=== PATIENT | male | born 1950 | race Caucasian/White ===

== ENCOUNTER 2020-01-20 20:23 | Observation (INO) | payer MEDICARE, OTHER ==
[~2020-01-20] VITALS: Ht 167.6 cm; Wt 96.2 kg
[2020-01-20] MEDS ORDERED: ONDANSETRON HCL INJ 2MG/ML 2ML 2 MG/ML VIAL IV STA (20:32)
[2020-01-20] MEDS ORDERED: MORPHINE SULFATE INJ 4 MG/ML INJ 1ML IV STA (20:32)
[2020-01-20 20:53] LABS: BASOPHILS # (AUTO) 0.1 (0.0-0.1); BASOPHILS % 1.1 % (0.0-1.0); EOSINOPHILS # (AUTO) 0.2 (0.0-0.4); EOSINOPHILS % 1.7 % (0.0-6.0); HEMATOCRIT 40.3 % (38.2-49.6); HEMOGLOBIN 12.9 g/dL (14.0-18.0); LYMPHOCYTES # (AUTO) 2.1 (1.0-3.2); LYMPHOCYTES % 22.4 % (18.0-39.1); MEAN CORPUSCULAR HEMOGLOBIN 27.7 pg (28-32); MEAN CORPUSCULAR VOLUME 86.7 fL (81-99); MONOCYTES # (AUTO) 0.8 (0.2-0.8); MONOCYTES % 8.9 % (4.4-11.3); NEUTROPHILS # (AUTO) 6.1 (2.1-6.9); NEUTROPHILS % 65.6 % (38.7-80.0); PLATELET COUNT 303 x10e3/uL (140-360); RED BLOOD COUNT 4.65 x10e6/uL (4.3-5.7); RED CELL DISTRIBUTION WIDTH 13.3 % (11.7-14.4)
[2020-01-20] MEDS ORDERED: SODIUM CHLORIDE 0.9% 1000ML 0 ML ONE (20:57)
[2020-01-20 21:02] LABS: INR 2.82; PROTHROMBIN TIME 31.6 seconds (11.9-14.5)
[2020-01-20 21:03] LABS: BILIRUBIN,URINE NEGATIVE (NEGATIVE); CLARITY,URINE SL CLOUDY (CLEAR); COLOR,URINE STRAW (YELLOW); KETONES,URINE TRACE (NEGATIVE); LEUKOCYTE ESTERASE ,URINE NEGATIVE (NEGATIVE); NITRITE,URINE NEGATIVE (NEGATIVE); PROTEIN,URINE DIPSTICK NEGATIVE (NEGATIVE); URINE UROBILINOGEN 4 mg/dL (0.2 - 1)
[2020-01-20 21:03] LABS: PARTIAL THROMBOPLASTIN TIME 43.4 seconds (23.8-35.5)
[2020-01-20 21:11] LABS: ALANINE AMINOTRANSFERASE 21 IU/L (0-55); ALBUMIN/GLOBULIN RATIO 0.6 (0.8-2.0); ALKALINE PHOSPHATASE 100 IU/L (40-150); ANION GAP 12.3 mmol/L (8-16); BLOOD UREA NITROGEN 15 mg/dL (7-26); BUN/CREATININE RATIO 13 (6-25); CALCIUM 8.5 mg/dL (8.4-10.2); CARBON DIOXIDE 25 mmol/L (22-29); CHLORIDE 105 mmol/L (98-107); CREATININE, SERUM 1.17 mg/dL (0.72-1.25); EST GLOMERULAR FILTRATION RATE > 60 ML/MIN (60-); GLUCOSE 129 mg/dL (74-118); POTASSIUM 4.3 mmol/L (3.5-5.1); SODIUM 138 mmol/L (136-145)
[2020-01-20 21:15] LABS: AMORPHOUS SEDIMENT,URINE MODERATE (FEW); BACTERIA,URINE MODERATE /HPF
[2020-01-20 21:22] LABS: AMYLASE 64 U/L (25-125); LIPASE 56 U/L (8-78)
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
[2020-01-21] VITALS (7 sets, daily range): BP systolic 116–147; BP diastolic 64–74
--- NOTE | 2020-01-21 00:39 | Diagnostic Imaging Report ---
EXAM: CT Abdomen and Pelvis WITH contrast INDICATION: Right lower quadrant pain. COMPARISON: None. TECHNIQUE: Abdomen and pelvis were scanned utilizing a multidetector helical scanner from the lung base to the pubic symphysis after administration of IV contrast. Coronal and sagittal reformations were obtained. Routine protocol was performed. Scan was performed during portal venous phase. IV CONTRAST: 100 cc of Isovue-370 ORAL CONTRAST: None. COMPLICATIONS: None RADIATION DOSE: Total DLP: 670.3 mGy*cm Estimated effective dose: (DLP x 0.015 x size factor) mSv CTDIvol has been reviewed. It is below the limits set by the Radiation Protocol Committee (RPC). FINDINGS: LINES and TUBES: None. LOWER THORAX: Dependent patchy opacities, left greater than right. HEPATOBILIARY: Diffuse mild hepatic steatosis. No evidence of focal lesion. No biliary ductal dilation. GALLBLADDER: No radio-opaque stones or sludge. No wall thickening. SPLEEN: No splenomegaly. PANCREAS: No focal masses or ductal dilatation. ADRENALS: No adrenal nodules KIDNEYS/URETERS: No evidence of hydronephrosis, solid mass, or stone. Bilateral renal cysts. GI TRACT: Small hiatal hernia. No evidence of wall thickening or distension. Duodenal diverticulum, measuring up to 1.5 cm. Appendix is normal. PELVIC ORGANS/BLADDER: Unremarkable. LYMPH NODES: No lymphadenopathy. VESSELS: There is mild atherosclerotic disease in the aorta and major arterial branches. PERITONEUM / RETROPERITONEUM: No free air or fluid. BONES AND SOFT TISSUES: There is a right-sided rectus sheath hematoma, measuring up to 6.7 x 4.5 cm with associated internal punctate contrast focus (series 2, image 64). Bilateral fat-containing inguinal hernias. Moderate compression deformity at T11. No retropulsion. CONCLUSION: Right rectus sheath hematoma, measuring up to 6.7 cm. Punctate internal focus of contrast hyperdensity, which may represent a small focus of active extravasation or pseudoaneurysm. Patchy dependent opacities in the lungs, compatible with atypical infection. Moderate age indeterminate compression deformity at T11. No retropulsion. The above findings were discussed with Dr. Storm on 01/21/2020 at 12:30 AM, who responded indicating that the communication was understood. Signed by: Dr. Kevan Mcclellan MD on 01/21/2020 12:35 AM
[2020-01-21 04:01] LABS: HEMATOCRIT 36.9 % (38.2-49.6); HEMOGLOBIN 11.8 g/dL (14.0-18.0)
[2020-01-21] MEDS ORDERED: WARFARIN SODIUM4 MG PO (04:15)
[2020-01-21] MEDS ORDERED: SODIUM CHLORIDE FLUSH 10 ML SYR INJ PRN (04:15)
[2020-01-21] MEDS ORDERED: ESOMEPRAZOLE MA20 MG PO (04:15)
[2020-01-21] MEDS ORDERED: ATORVASTATIN CA40 MG PO (04:15)
--- NOTE | 2020-01-21 04:29 | NUR ---
pt placed on telemetry box #11 per orders.
--- NOTE | 2020-01-21 04:45 | NUR ---
Patient arrived from ED to 284 with admitting diagnosis of Rectus sheath hematoma. Pt alert and oriented x3. Ambulatory in room prn. Placed on covid room due to recent history of COVID. Pt stated most recent COVID test was negative and awaiting on second COVID test done at [facility]. Hgb dropped dropped from 12.9 to 11.8 and thus was admitted for observation. Call mcdaniels within reach. Will monitor pt closely.
[2020-01-21 06:08] LABS: HEMOGLOBIN 12.8 g/dL (14.0-18.0)
--- NOTE | 2020-01-21 06:49 | NUR ---
Dr. Nehemias Rogers called back and was notified of new consult for patient regarding Rectus sheath hematoma and abdominal pain. MD aware and stated he will see pt this morning.
[2020-01-21 07:51] LABS: INR 2.82; PROTHROMBIN TIME 31.6 seconds (11.9-14.5)
[2020-01-21] MEDS: PANTOPRAZOLE SOD 40 MG TABEC PO SCH (08:20)
[2020-01-21] MEDS ORDERED: WARFARIN SOD 2 MG TAB PO SCH ×2 (09:00→17:00)
[2020-01-21] MEDS ORDERED: SODIUM CHLORIDE 0.9% 50ML 50 ML ONE (09:27)
[2020-01-21] MEDS ORDERED: IOPAMIDOL 370 MG/ML 200 ML INFUS..BTL INJ ONE (09:27)
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
[2020-01-21 12:32] LABS: HEMATOCRIT 39.6 % (38.2-49.6); HEMOGLOBIN 12.6 g/dL (14.0-18.0)
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
[2020-01-21 18:21] LABS: HEMATOCRIT 40.2 % (38.2-49.6)
--- NOTE | 2020-01-21 18:41 | NUR ---
aware patient on coumadin. Per Dr.Rodriguez Luis. "hold coumadin"
--- NOTE | 2020-01-21 18:47 | NUR ---
Report given to oncoming nurse of patient's status. Resting in bed, side rails upx2, call light within reach. AAOX4 to time, person, place, situation. Respirations even and unlabored.
[2020-01-21] MEDS ORDERED: HYDROCODONE/APAP 7.5MG-325MG 1 EA TAB PO PRN (19:00)
--- NOTE | 2020-01-21 19:10 | NUR ---
Received the patient in report.lyeing in the bed.stable condition.
--- NOTE | 2020-01-21 20:40 | NUR ---
Assessment done.no resp.distress.right lower abd pain voiced 12/09.medicated with norco 7.5 mg po.iv to right ac #18 patent.bed locked .phone and call light within reach.stable condition.
--- NOTE | 2020-01-21 20:47 | NUR ---
Report given to Jaja Rosales.
[2020-01-21] MEDS ORDERED: ATORVASTATIN 40 MG TAB PO SCH (21:00)
--- NOTE | 2020-01-21 21:35 | NUR ---
TRANSFERRING THE PATIENT TO ROOM #176 IN A HOSPITAL BED IN A STABLE CONDITION WITH HOSPITAL PROTOCOL.
--- NOTE | 2020-01-21 22:00 | NUR ---
pt recieved from rm 285 via bed. no ss of distress noted. no co pain at time. tele in place. oriented to rm. pt verbalized understanding. call mcdaniels within reach.
--- NOTE | 2020-01-21 23:51 | NUR ---
blood drawn per orders and sent to lab. pt tolerated well. call mcdaniels within reach.
[2020-01-22] VITALS: BP_SYST 131; BP_SYST 165; BP_DIAS 71; BP_DIAS 81
[2020-01-22 00:04] LABS: HEMATOCRIT 37.6 % (38.2-49.6); HEMOGLOBIN 12.1 g/dL (14.0-18.0)
[2020-01-22] MEDS: MORPHINE SULFATE INJ 4 MG/ML INJ 1ML IV PRN ×3 (00:57→14:36)
[2020-01-22 04:00] VITALS: BP 138/76
--- NOTE | 2020-01-22 05:57 | NUR ---
dr jameson rounded at time. no distress noted. call mcdaniels within reach.
[2020-01-22 05:58] LABS: BASOPHILS # (AUTO) 0.1 (0.0-0.1); BASOPHILS % 0.8 % (0.0-1.0); EOSINOPHILS # (AUTO) 0.1 (0.0-0.4); EOSINOPHILS % 1.4 % (0.0-6.0); HEMATOCRIT 38.7 % (38.2-49.6); HEMOGLOBIN 12.6 g/dL (14.0-18.0); LYMPHOCYTES # (AUTO) 1.7 (1.0-3.2); LYMPHOCYTES % 17.8 % (18.0-39.1); MEAN CORPUSCULAR HEMOGLOBIN 28.6 pg (28-32); MEAN CORPUSCULAR HGB CONC 32.6 g/dL (31-35); MONOCYTES # (AUTO) 0.7 (0.2-0.8); MONOCYTES % 7.4 % (4.4-11.3); NEUTROPHILS # (AUTO) 6.9 (2.1-6.9); NEUTROPHILS % 72.2 % (38.7-80.0); PLATELET COUNT 235 x10e3/uL (140-360); RED CELL DISTRIBUTION WIDTH 13.3 % (11.7-14.4)
--- NOTE | 2020-01-22 07:06 | NUR ---
CHANGE OF SHIFT REPORT RECEIVED FROM PM NURSE. PT IN STABLE CONDITION.
[2020-01-22] MEDS: PANTOPRAZOLE SOD 40 MG TABEC PO SCH (08:00)
[2020-01-22 08:02] VITALS: BP 138/76
[2020-01-22 08:26] VITALS: BP 139/78
[2020-01-22] MEDS: ONDANSETRON HCL INJ 2MG/ML 2ML 2 MG/ML VIAL IV PRN ×2 (08:27→14:36)
[2020-01-22 09:18] LABS: INR 2.29; PROTHROMBIN TIME 26.7 seconds (11.9-14.5)
[2020-01-22 13:34] VITALS: BP 124/75
--- NOTE | 2020-01-22 16:19 | NUR ---
[id number] covid 1 m ago no treatment no isolation
[2020-01-22 17:38] VITALS: BP 138/70
--- NOTE | 2020-01-22 20:50 | Consultation ---
DATE OF CONSULTATION: REASON FOR CONSULTATION: COVID-19. HISTORY OF PRESENT ILLNESS: This is a very pleasant 69-year-old male, who comes in with abdominal pain and dropped his hemoglobin after a fall. The patient had a rectus sheath hematoma. He was diagnosed with COVID-19 few weeks ago. The patient also has a history of aortic valve replacement. The patient is on anticoagulation, on Coumadin with INR about 2.5 to 3.5. He had history of COVID back on January 11. He was telling me that he has no shortness of breath and no cough. PHYSICAL EXAMINATION: GENERAL: He is currently alert and oriented. VITAL SIGNS: Stable, currently afebrile. HEENT: He is not icteric. NECK: Supple. CHEST: Clear. HEART: S1 and S2. No murmur. ABDOMEN: Soft. LABORATORY DATA: CAT scan reviewed. He had a right rectus sheath hematoma, 6.5 cm. IMPRESSION: 1. COVID-19, asymptomatic. No need for treatment, could be discharged home from Infectious Disease point of view. 2. Right groin hematoma. Surgery been consulted. We will follow. MD KRISTIE Falk/DELMY /[id number]
== END 2020-01-22 18:55 | disposition home or self-care (01) ==
LOC: ER 20:32 → ERHOLD 01-21 04:16 → MED/SURG3 01-21 04:48 → IMCU 01-21 22:37
PROVIDERS: ADMIT Family Medicine; ATTEND Family Medicine
DX: S37.892A Contusion of other urinary and pelvic organ, initial encounter (principal); U07.1 COVID-19; Z79.01 Long term (current) use of anticoagulants; Z95.2 Presence of prosthetic heart valve; W01.0XXA Fall on same level from slipping, tripping and stumbling without subsequent striking against object, initial encounter
CPT/HCPCS: 36415 ×3; 74177; 80053; 81001; 82150; 83690; 85014 ×2; 85018 ×2; 85025 ×2; 85610 ×3; 85730; 96375; 96376; 99284; G0378 ×2; J2270 ×2; J2405 ×2; Q9967; S0164 ×2; U0002; J7030